=== PATIENT | male | born 1990 | race Hispanic/Latino ===

== ENCOUNTER 2017-03-29 00:21 | Emergency (ER) | payer SELFPAY ==
[~2017-03-29] VITALS: Ht 165.1 cm; Wt 57.7 kg
[2017-03-29 00:46] LABS: HEMATOCRIT 45.2 % (38.0-50.0); MCHC 33.2 G/DL (30.0-36.0); MCV 84.5 FL (86-99); MEAN PLAT.VOLUME 9.6 uM^3 (9.0-12.4); PLATELET COUNT 265 K/uL (156-360); RBC DIS.WIDTH-SD 39.7 % (39-53); RED BLOOD COUNT 5.35 M/uL (4.00-5.50); WHITE BLOOD COUNT 5.9 K/uL (4.1-10.2)
[2017-03-29 00:53] LABS: ADD MIUA? NO; BILIRUBIN NEGATIVE; BLOOD NEGATIVE; COLOR STRAW ((YELLOW)); GLUCOSE (STRIP) NEGATIVE; KETONES NEGATIVE; LEUKOCYTES NEGATIVE; NITRITE NEGATIVE; PROTEIN (STRIP) NEGATIVE; SPECIFIC GRAVITY 1.016 (1.000-1.030); UCUL ADDED? NO; UROBILINOGEN 0.2 MG/DL (0.2-1.0)
[2017-03-29 00:57] LABS: CHLORIDE 103 mEq/L (99-109); SODIUM 140 mEq/L (136-147)
[2017-03-29 00:59] LABS: GLUCOSE 97 mg/dL (70-99)
[2017-03-29 01:00] LABS: ANION GAP 9 MEQ/L (2-14)
[2017-03-29 01:01] LABS: TOTAL BILIRUBIN 1.1 mg/dL (0.0-1.0)
[2017-03-29 01:02] LABS: ALKALINE PHOSPHATASE 94 IU/L (3-129)
[2017-03-29 01:04] LABS: UREA NITROGEN (BUN) 17 mg/dL (9-23)
[2017-03-29 01:08] LABS: GFR ESTIMATE (CALCULATED) > 59 mL/min/
[2017-03-29 02:23] LABS: LIPASE 33 U/L (1.0-51.0)
[2017-03-29 03:53] LABS: TROP-I INTERPRETATION NEGATIVE; TROPONIN-I < 0.01 ng/mL (0.0-0.30)
[2017-03-29 05:03] LABS: TROP-I INTERPRETATION NEGATIVE; TROPONIN-I < 0.01 ng/mL (0.0-0.30)
[2017-03-29] MEDS ORDERED: NORCO 5/3251 TABLET PO (05:28)
[2017-03-29] MEDS ORDERED: LIDOCAINE700 MG TD (05:28)
[2017-03-29] MEDS ORDERED: CARAFATE1 GM PO (05:28)
[2017-03-29 05:42] VITALS: BP 129/89
== END 2017-03-29 05:43 | disposition home or self-care (01) ==
LOC: EME 00:21
PROVIDERS: Emergency Medicine
DX: R10.10 Upper abdominal pain, unspecified (principal); G89.29 Other chronic pain; M54.5 Low back pain; I45.10 Unspecified right bundle-branch block
CPT/HCPCS: 71020; 74176; 80053; 81003; 83690; 84484; 85027; 93005; 99281; 99285; J1885